=== PATIENT | female | born 1985 | race African-American/Black ===

== ENCOUNTER 2017-03-17 00:29 | Emergency (ER) | payer OTHER ==
[2017-03-17 00:58] VITALS: BP 125/81; PULSE 88; TEMP 97.3; BMI 36.5
[2017-03-17 01:11] LABS: BASOPHIL 0.4 % (0-2.0); EOSINOPHIL 0.7 % (0-4.5); MCH 28.6 pg (25.7-33.7); MCHC 32.1 g/dl (32.0-36.0); MEAN PLT VOLUME 7.5 fl (7.5-11.1); PLATELET COUNT 296 K/MM3 (134-434); RDW 14.8 % (11.6-15.6); WHITE BLOOD COUNT 12.2 K/mm3 (4.0-10.0)
[2017-03-17 01:12] LABS: URINE APPEARANCE CLEAR; URINE BILIRUBIN NEGATIVE (NEGATIVE); URINE COLOR YELLOW; URINE GLUCOSE (UA) NEGATIVE (NEGATIVE); URINE KETONE NEGATIVE (NEGATIVE); URINE NITRITE NEGATIVE (NEGATIVE); URINE PROTEIN NEGATIVE (NEGATIVE); URINE UROBILINOGEN NEGATIVE E.U./dl (0.2-1.0)
[2017-03-17 01:25] LABS: URINE BLOOD 3+ (NEGATIVE); URINE LEUK ESTERASE TRACE (NEGATIVE)
[2017-03-17 01:27] LABS: URINE MUCUS RARE; URINE RBC 1 /hpf (0-3); URINE WBC 2 /hpf (3-5)
[2017-03-17 01:33] LABS: ALBUMIN 3.2 g/dl (3.4-5.0); ANION GAP 13 (8-16); BILIRUBIN,TOTAL 0.3 mg/dL (0.2-1.0); CALCIUM 9.2 mg/dL (8.5-10.1); CO2 21 mmol/L (21-32); COCKROFT - GAULT 202.215; CREATININE 0.6 mg/dL (0.55-1.02); GLUCOSE,RANDOM 109 mg/dL (74-106); SGOT/AST 24 U/L (15-37); SGPT/ALT 33 U/L (12-78)
[2017-03-17 01:49] LABS: ALK PHOS 49 U/L (45-117)
--- NOTE | 2017-03-17 02:56 | PDOC ---
History of Present Illness - General Chief Complaint: Vaginal Bleeding Stated Complaint: 13 WEEKS ,VAGINAL BLEEDING Time Seen by Provider: 03/17/17 01:05 History Source: Patient Exam Limitations: No Limitations - History of Present Illness Travel History: No Initial Comments: 03/17/17 02:54 31yo Female patient w/ PmHx: Asthma presents to ED c/o vaginal bleeding. Patient reports she is 13 weeks and heavy bleeding began 1 hour ago with passing of "1 clot." Patient denies fever, Abd pain, back pain, diff breathing Timing/Duration: denies: constant, getting worse, changing over time, intermittent, resolved prior to arrival, gone now, other Quality: denies: mild, moderate, severe, aching, burning, cramping, dullness, fullness, sharpness, stabbing, throbbing, other Abdominal Pain Onset Location: denies: RUQ, LUQ, RLQ, LLQ, epigastric, periumbilical, suprapubic, generalized abdomen, flank, unknown, other Pain Radiation: denies: no radiation, RUQ, LUQ, RLQ, LLQ, epigastric, periumbilical, flank, groin, scapula, shoulder, chest, back, other Activities at Onset: denies: none, exertion, emotional upset, rest, sleep, no specific activity, eating, working, sexual intercourse, other Treatment Prior to Arrive: worse with: analgesics, antacids, cold pack, heat, laxative, enema, other Past History - Travel Traveled outside of the country in the last 30 days: No Close contact w/someone who was outside of country & ill: No - Past Medical History Allergies/Adverse Reactions: Allergies Allergy/AdvReac Type Severity Reaction Status Date / Time No Known Allergies Allergy Verified 03/17/17 00:56 Home Medications: Ambulatory Orders Nitrofurantoin Monohyd/M-Cryst [Macrobid -] 100 mg PO BID #14 capsule 03/17/17 - Reproductive History Is Patient Now?: Yes Therapeutic (s) & number: No - Immunization History Immunization Up to Date: Yes - Psycho/Social/Smoking Cessation Hx Suicidal Ideation: No Smoking History: Never smoked Have you smoked in the past 12 months: No Information on smoking cessation initiated: No Hx Alcohol Use: No Drug/Substance Use Hx: No Substance Use Type: None Abd/GI Specific PMHX - Complaint Specific PMHX Colitis: No Diverticulitis: No Gall Bladder Disease: No GERD: No Hepatitis: No Irritable Bowel Synd (IBS): No Pancreatitis: No GI Ulcer Disease: No Review of Systems - Review of Systems Able to Perform ROS?: Yes Is the patient limited Tam[place] proficient: No Constitutional: No: Chills, Fever ABD/GI: No: Diarrhea, Nausea, Poor Appetite, Poor Fluid Intake, Vomiting, Abdominal cramping : Yes: Other (Vaginal Bleeding). No: Dysuria, Hematuria Musculoskeletal: No: Back Pain Integumentary: No: Bruising, Erythema, Rash, Sweating Neurological: No: Headache, Seizure, Ataxia, Dizziness *Physical Exam - Vital Signs Last Vital Signs Temp Pulse Resp BP Pulse Ox 97.3 F L 88 18 125/81 98 03/17/17 00:56 03/17/17 00:56 03/17/17 00:56 03/17/17 00:56 03/17/17 00:56 - Physical Exam General Appearance: Yes: Nourished, Appropriately Dressed. No: Apparent Distress, Mild Distress, Moderate Distress, Severe Distress Neck: positive: Trachea midline, Normal Thyroid, Supple. negative: Rigid, Stridor, Lymphadenopathy (R), Lymphadenopathy (L) Respiratory/Chest: positive: Lungs Clear, Normal Breath Sounds. negative: Chest Tender, Respiratory Distress, Accessory Muscle Use, Labored Respiration, Rapid RR, Rhonchi, Stridor, Wheezing Cardiovascular: positive: Regular Rhythm, Regular Rate Gastrointestinal/Abdominal: positive: Normal Bowel Sounds, Soft, Distended (13 Weeks preg.). negative: Guarding, Rebound, Tenderness Musculoskeletal: positive: Normal Inspection. negative: CVA Tenderness, Vertebral Tenderness Extremity: positive: Normal Capillary Refill, Normal Inspection, Normal Range of Motion. negative: Swelling, Calf Tenderness, Erythema, Inflammation Integumentary: positive: Normal Color, Dry, Warm. 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, Fully Oriented, Alert, Normal Mood/ Affect, Normal Response, Motor Strength /5 ED Treatment Course - LABORATORY CBC & Chemistry Diagram: 03/17/17 01:03 03/17/17 01:03 - ADDITIONAL ORDERS Additional order review: Laboratory Results 03/17/17 03/17/17 01:03 01:03 Sodium 137 Potassium 3.8 Chloride 103 Carbon Dioxide 21 Anion Gap 13 BUN 9 Creatinine 0.6 Creat Clearance w eGFR > 60 Random Glucose 109 H Calcium 9.2 Total Bilirubin 0.3 AST 24 ALT 33 Alkaline Phosphatase 49 Total Protein 7.0 Albumin 3.2 L Beta HCG, Quant 01240.0 Urine Color Yellow Urine Appearance Clear Urine pH 5.0 Urine Protein Negative Urine Glucose (UA) Negative Urine Ketones Negative Urine Blood 3+ H Urine Nitrite Negative Urine Bilirubin Negative Urine Urobilinogen Negative Ur Leukocyte Esterase Trace H Urine RBC 1 Urine WBC 2 Ur Epithelial Cells Rare Urine Mucus Rare 03/17/17 01:03 RBC 4.34 MCV 89.0 MCHC 32.1 RDW 14.8 MPV 7.5 Neutrophils % 75.0 Lymphocytes % 15.9 Monocytes % 8.0 Eosinophils % 0.7 Basophils % 0.4 - RADIOLOGY Radiology Studies Ordered: Category Date Time Status LIMITED US [US] Stat Ultrasound 03/17/17 01:15 Taken *DC/Admit/Observation/Transfer Diagnosis at time of Disposition: Threatened in second trimester Urinary tract infection Qualifiers: Urinary tract infection type: urethritis Qualified Code(s): N34.2 - Other urethritis - Discharge Dispostion Disposition: HOME Condition at time of disposition: Stable Admit: No - Prescriptions Prescriptions: Nitrofurantoin Monohyd/M-Cryst [Macrobid -] 100 mg PO BID #14 capsule - Patient Instructions Printed Discharge Instructions: DI for Threatened Additional Instructions: FOLLOW UP WITH YOUR WELL CLEANER THIS WEEK FOR FURTHER EVALUATION. CALL TO SCHEDULE APPOINTMENT. TAKE MEDICATIONS PRESCRIBED. IF SYMPTOMS WORSEN, OR ANY CONCERNS , RETURN FOR FURTHER EVALUATION. Print Language: MACEDON[place]
== END 2017-03-17 03:35 | disposition home or self-care (01) ==
LOC: JER 00:29
DX: O20.0 Threatened abortion (principal); Z3A.13 13 weeks gestation of pregnancy; N34.2 Other urethritis
CPT/HCPCS: 36415; 76815-TC; 80053; 81003; 81015; 84702; 85025; 86850; 86900; 86901; 87086; 99283-25